=== PATIENT | female | born 1990 | race Caucasian/White ===

== ENCOUNTER 2024-04-16 07:51 | Emergency (ER) | payer MEDICAID ==
[~2024-04-16] VITALS: Ht 167.6 cm; Wt 58.2 kg
[2024-04-16] MEDS ORDERED: [UNRECOGNIZED DRUG - OTHER] PO (08:08)
[2024-04-16] MEDS ORDERED: DICYCLOMINE HCL10 MG PO (08:08)
[2024-04-16] MEDS ORDERED: TOPIRAMATE PO (08:09)
[2024-04-16] MEDS ORDERED: MORPHINE SULFAT15 MG PO (08:09)
[2024-04-16] MEDS ORDERED: ZOLPIDEM TART12.5 MG PO (08:09)
[2024-04-16] MEDS ORDERED: TRAMADOL HCL50 MG PO (08:10)
[2024-04-16] MEDS ORDERED: DIAZEPAM5 MG PO (08:10)
[2024-04-16] MEDS ORDERED: VALACYCLOVIR1000 MG PO (08:10)
[2024-04-16] MEDS ORDERED: DIFLUCAN100 MG PO (08:11)
[2024-04-16] MEDS ORDERED: KETOROLAC TROMETHAMINE 15 MG/ML VIAL IV ONE (08:15)
[2024-04-16] MEDS ORDERED: SODIUM CHLORIDE 0.9% 1,000 ML IV ONE ×2 (08:15→09:45)
[2024-04-16] MEDS ORDERED: ondansetron HCL 4 MG/2 ML VIAL IV ONE ×2 (08:15→11:45)
[2024-04-16 08:25] LABS: BASOPHILS 0.3 % (0-2); EOSINOPHILS 1.4 % (0-6); HEMATOCRIT 42.5 % (35.0-50.0); HEMOGLOBIN 14.4 g/dL (12.0-18.0); LYMPHOCYTES 25.6 % (24-44); MCH 31.9 (27-36); MCHC 33.8 g/dl (30-36); MCV 94.4 fl (81-99); MONOCYTES 9.8 % (0-12); NEUTROPHILS 62.9 % (39-80); PLATELET COUNT 232 K/uL (140-440); RDW 13.5 (10.5-15.0)
[2024-04-16 09:05] LABS: ALBUMIN 3.3 g/dL (3.4-5.0); ALBUMIN/GLOBULIN RATIO 0.97 (1.1-2.4); ANION GAP 14.3 (7-21); BILIRUBIN, TOTAL 0.3 ng/dL (0.2-1.0); BUN/CREATININE RATIO 8.96 (6.0-28.6); CALCIUM 8.6 mg/dL (8.5-10.1); CREATININE, SERUM 1.45 mg/dL (0.55-1.02); POTASSIUM 3.3 mmol/L (3.5-5.1); PROTEIN, TOTAL 6.7 g/dL (6.4-8.2)
[2024-04-16 09:52] LABS: BILIRUBIN, URINE POSITIVE (negative); BLOOD/HGB, URINE SMALL (Negative); KETONE, URINE TRACE (Negative); LEUK ESTERASE, URINE NEGATIVE (negative); NITRITE, URINE NEGATIVE (negative); PH, URINE 5.5 (5-7)
[2024-04-16 10:12] LABS: CASTS, URINE NONE SEEN \\lpf; COLLECTION TYPE, URINE CATH; CRYSTALS, URINE NONE SEEN (0-1+); EPITHELIAL CELLS, URINE 0 /lpf (0-1+); RED BLOOD CELLS, URINE 21-40 /hpf (0-5); REFLEX CULTURE, URINE No (No); WHITE BLOOD CELLS, URINE 0-1 /HPF (0-5)
[2024-04-16 10:13] LABS: BACTERIA, URINE RARE /hpf (negative)
[2024-04-16] MEDS ORDERED: HYDROmorphone HCL 1 MG/ML SYR IV PRN (11:00)
[2024-04-16] MEDS ORDERED: TAMSULOSIN HCL 0.4 MG CAP PO ONE (12:15)
[2024-04-16] MEDS ORDERED: FLOMAX0.4 MG PO (13:33)
[2024-04-16] MEDS ORDERED: HYDROMORPHONE HC2 MG PO (13:33)
[2024-04-16 13:53] VITALS: BP 118/83
== END 2024-04-16 13:59 | disposition home or self-care (01) ==
LOC: ED 07:51
PROVIDERS: Emergency Medicine
DX: N13.2 Hydronephrosis with renal and ureteral calculous obstruction (principal); Z88.5 Allergy status to narcotic agent; Z88.8 Allergy status to other drugs, medicaments and biological substances; Z79.899 Other long term (current) drug therapy
CPT/HCPCS: 36415; 51701; 74176; 76705; 80053; 81001; 83690; 84703; 85025; 99284-25; J1170; J1885; J2405; J7030

== ENCOUNTER 2024-08-11 06:28 | Emergency (ER) | payer OTHER, MEDICAID ==
[~2024-08-11] VITALS: Ht 167.6 cm; Wt 57.2 kg
[~2024-08-11 06:28] MED LIST: DIAZEPAM5 MG PO; DICYCLOMINE HCL10 MG PO; DIFLUCAN100 MG PO; FLOMAX0.4 MG PO; HYDROMORPHONE HC2 MG PO; MORPHINE SULFAT15 MG PO; TOPIRAMATE PO; TRAMADOL HCL50 MG PO; VALACYCLOVIR1000 MG PO; ZOLPIDEM TART12.5 MG PO; [UNRECOGNIZED DRUG - OTHER] PO
[2024-08-11] MEDS ORDERED: KETOROLAC TROMETHAMINE 30 MG/ML VIAL IM ONE (07:00)
[2024-08-11 07:36] VITALS: BP 92/73
== END 2024-08-11 07:36 | disposition home or self-care (01) ==
LOC: ED 06:28
DX: S46.912A Strain of unspecified muscle, fascia and tendon at shoulder and upper arm level, left arm, initial encounter (principal); G43.909 Migraine, unspecified, not intractable, without status migrainosus; G62.9 Polyneuropathy, unspecified; Z88.8 Allergy status to other drugs, medicaments and biological substances; Z88.5 Allergy status to narcotic agent; Z79.899 Other long term (current) drug therapy; X50.0XXA Overexertion from strenuous movement or load, initial encounter
CPT/HCPCS: 73030; 96372; 99283; J1885